=== PATIENT | male | born 1970 | race Caucasian/White ===

== ENCOUNTER 2020-01-04 07:40 | Day surgery (SDC) | payer BC ==
[~2020-01-04] VITALS: Ht 185.4 cm; Wt 89.4 kg
[~2020-01-04 07:40] MED LIST: OMEP10ER; ZOLP10 PO
[2020-01-04] MEDS ORDERED: ZOLP10 (08:17)
== END 2020-01-04 10:00 | disposition home or self-care (01) ==
LOC: ORSCSDS 07:40
PROVIDERS: Internal Medicine Gastroenterology
PROC: 0DBP8ZX Excision of Rectum, Via Natural or Artificial Opening Endoscopic, Diagnostic (ICD-10-PCS; principal; 2020-01-04 09:00)
PROC: 0DBN8ZX Excision of Sigmoid Colon, Via Natural or Artificial Opening Endoscopic, Diagnostic (ICD-10-PCS; principal; 2020-01-04 09:00)
DX: Z12.11 Encounter for screening for malignant neoplasm of colon (principal); D12.5 Benign neoplasm of sigmoid colon; D12.8 Benign neoplasm of rectum; K64.8 Other hemorrhoids
CPT/HCPCS: 88305; J2250; J2704; J7120

== ENCOUNTER 2023-05-13 08:49 | Day surgery (SDC) | payer BC ==
[~2023-05-13] VITALS: Ht 185.4 cm; Wt 93.4 kg
[~2023-05-13 08:49] MED LIST changes: +ZOLP10
[2023-05-13] MEDS ORDERED: FISH OIL 1,0001 EA10 PO (09:17)
[2023-05-13 12:36] VITALS: BP 101/61
== END 2023-05-13 12:35 | disposition home or self-care (01) ==
LOC: ORSCSDS 08:49
PROVIDERS: Internal Medicine Gastroenterology
PROC: 0DBH8ZX Excision of Cecum, Via Natural or Artificial Opening Endoscopic, Diagnostic (ICD-10-PCS; principal; 2023-05-13 10:15)
PROC: 0DBM8ZX Excision of Descending Colon, Via Natural or Artificial Opening Endoscopic, Diagnostic (ICD-10-PCS; principal; 2023-05-13 10:15)
PROC: 0DBL8ZX Excision of Transverse Colon, Via Natural or Artificial Opening Endoscopic, Diagnostic (ICD-10-PCS; principal; 2023-05-13 10:15)
DX: Z12.11 Encounter for screening for malignant neoplasm of colon (principal); Z86.010 Personal history of colon polyps; D12.5 Benign neoplasm of sigmoid colon; D12.4 Benign neoplasm of descending colon; D12.0 Benign neoplasm of cecum; K63.5 Polyp of colon; K62.1 Rectal polyp; Z79.899 Other long term (current) drug therapy
CPT/HCPCS: 88305; J2250; J2704; J7120

== ENCOUNTER 2023-12-25 22:55 | Emergency (ER) | payer BC ==
[~2023-12-25] VITALS: Ht 185.4 cm; Wt 90.7 kg
[~2023-12-25 22:55] MED LIST changes: +FISH OIL 1,0001 EA10 PO
[2023-12-25] MEDS ORDERED: Diltiazem HCl 5 MG / ML 5ML Vial IV ONE ×2 (23:15→23:50)
[2023-12-25] MEDS ORDERED: NS 1,000 ML IV SCH (23:15)
[2023-12-25] MEDS ORDERED: Digoxin 0.25 MG/ML 2ML Amp IV ONE (23:15)
[2023-12-25 23:19] LABS: BASOPHILS PERCENT AUTO 1 % (0-2); EOSINOPHILS ABSOLUTE AUTO 0.51 K/mm3 (0.00-0.68); EOSINOPHILS PERCENT AUTO 5 % (0-6); Hemoglobin 16.4 g/dL (13.5-17.5); IMMATURE GRAN ABSOLUTE AUTO 0.02 K/mm3 (0.00-0.10); IMMATURE GRAN PERCENT AUTO 0 % (0-1); LYMPHOCYTES ABSOLUTE AUTO 3.68 K/mm3 (0.84-5.20); LYMPHOCYTES PERCENT AUTO 39 % (21-46); MONOCYTES ABSOLUTE AUTO 0.72 K/mm3 (0.16-1.47); MONOCYTES PERCENT AUTO 8 % (4-13); Mean Corpuscular HGB 30.9 pg (26.0-34.0); Mean Corpuscular HGB Conc 34.2 g/dL (31.5-36.5); Mean Corpuscular Volume 91 fL (80-100); Mean Platelet Volume 9.8 fL (9.1-12.4); NEUTROPHILS ABSOLUTE AUTO 4.34 K/mm3 (1.96-9.15); NEUTROPHILS PERCENT AUTO 46 % (41-73); Platelet Count 268 K/mm3 (150-400); RDW Coefficient Variation 12.5 % (11.7-14.2); White Blood Cell Count 9.37 K/mm3 (4.00-11.30)
[2023-12-25 23:37] LABS: Albumin, Blood 2.9 g/dL (3.4-5.0); Albumin/Globulin Ratio 0.8 (0.8-1.8); Bilirubin, Total 0.4 mg/dL (0.1-1.0); Bun/Creatinine Ratio 19.2 (12.0-20.0); Calcium, Blood 8.8 mg/dL (8.5-10.1); Creatinine, Blood 0.99 mg/dL (0.60-1.20); Globulin, Blood 3.6 g/dL (2.2-4.0); Magnesium, Blood 2.2 mg/dL (1.6-2.4); Potassium, Blood 3.9 mmol/L (3.5-5.5); Total Protein, Blood 6.5 g/dL (6.4-8.2)
[2023-12-26] MEDS ORDERED: Cardizem CD 12120 MG PO (00:04)
[2023-12-26] MEDS ORDERED: dilTIAZem HCL 120 MG CAP.CD PO ONE (00:04)
[2023-12-26] MEDS ORDERED: ELIQUIS5 M2 PO (00:04)
[2023-12-26 00:15] VITALS: BP 124/82
[2023-12-26] MEDS ORDERED: Apixaban 5 MG Tab PO ONE (00:23)
== END 2023-12-26 00:35 | disposition home or self-care (01) ==
LOC: ER 22:55
PROVIDERS: Emergency Medicine
DX: I48.91 Unspecified atrial fibrillation (principal); Z88.8 Allergy status to other drugs, medicaments and biological substances
CPT/HCPCS: 71045; 80053; 83735; 83880; 84443; 84484; 85025; 93005; 93010; 96361; 96374; 96375; 96376; 99285-25; A9270; J1160; J7030